=== PATIENT | female | born 1955 | race Caucasian/White ===

== ENCOUNTER 2020-06-26 06:29 | Observation (INO) ==
[2020-06-26] MEDS ORDERED: Isovue-370 500 ML BOTTLE IVP ONE (06:49)
[2020-06-26 07:09] LABS: Basophils % 0.4 %; Eosinophils # 0.1 K/mcL (0.0-0.6); Eosinophils % 1.1 %; Hematocrit 43.9 % (35.3-44.9); Hemoglobin 14.7 g/dL (11.5-15.4); Immature Granulocytes % 0.4 % (0-4); Lymphocytes # 1.2 K/mcL (0.6-4.6); Lymphocytes % 12.6 %; Mean Corpuscular HGB Conc 33.5 g/dL (31.6-35.5); Mean Corpuscular Hemoglobin 32.7 pg (28.0-33.3); Mean Corpuscular Volume 97.8 fL (83.0-100.0); Mean Platelet Volume 10.8 fL (9.4-12.4); Monocytes # 0.6 K/mcL (0.0-1.3); Monocytes % 6.2 %; Neutrophils # 7.3 K/mcL (1.6-8.9); Platelet Count 215 K/mcL (140-400); Red Blood Count 4.49 M/mcL (3.82-4.97); Red Cell Distribution Width 13.8 % (11.5-14.5); Segmented Neutrophils % 79.3 %; White Blood Count 9.2 K/mcL (4.3-11.1)
[2020-06-26 07:28] LABS: Prothrombin Time 11.7 Seconds (9.4-12.1)
[2020-06-26 07:30] LABS: Activated Partial Thrombo Time 32.6 Seconds (26.0-36.0)
[2020-06-26 07:36] LABS: Albumin/Globulin Ratio 1.4 (1.1-2.2); Bilirubin,Total 0.5 mg/dL (0.3-1.0); Calcium 9.4 mg/dL (8.6-10.3); Globulin 2.8 g/dL (2.4-3.5); Potassium 4.4 mEq/L (3.5-5.1); Total Protein 6.8 g/dL (6.4-8.9)
[2020-06-26] MEDS ORDERED: 0.9 % Sodium Chloride 1,000 ML IVC ONE (09:13)
[2020-06-26] MEDS ORDERED: Ondansetron 4 MG/2 ML VIAL IVP ONE (09:13)
[2020-06-26] MEDS ORDERED: Famotidine 20 MG/2 ML VIAL IVP ONE (09:14)
[2020-06-26] MEDS ORDERED: Melatonin 3 MG TABLET PO PRN (10:22)
[2020-06-26] MEDS ORDERED: Acetaminophen 325 MG TABLET PO PRN (10:22)
[2020-06-26] MEDS ORDERED: Ondansetron 4 MG/2 ML VIAL IVP PRN (10:22)
[2020-06-26] MEDS ORDERED: MOM Conc 10 ML UD.LIQ PO PRN (10:22)
[2020-06-26] MEDS ORDERED: Naloxone 0.4 MG/ML INJ IVP PRN (10:22)
[2020-06-26] MEDS ORDERED: TRAMADOL HCL 50 MG PO PRN (10:29)
[2020-06-26] MEDS: *HR* OxyCODONE/APAP 5/325 TABLET PO PRN ×2 (11:42→22:59)
[2020-06-26] MEDS: 0.9 % Sodium Chloride 1,000 ML IVC SCH ×2 (11:43→23:02)
[2020-06-27 04:27] LABS: Basophils % 0.7 %; Eosinophils # 0.1 K/mcL (0.0-0.6); Eosinophils % 2.2 %; Hematocrit 39.2 % (35.3-44.9); Hemoglobin 12.7 g/dL (11.5-15.4); Immature Granulocytes % 0.2 % (0-4); Lymphocytes # 1.5 K/mcL (0.6-4.6); Mean Corpuscular HGB Conc 32.4 g/dL (31.6-35.5); Mean Corpuscular Hemoglobin 32.5 pg (28.0-33.3); Mean Corpuscular Volume 100.3 fL (83.0-100.0); Mean Platelet Volume 10.9 fL (9.4-12.4); Monocytes # 0.4 K/mcL (0.0-1.3); Monocytes % 7.7 %; Neutrophils # 3.4 K/mcL (1.6-8.9); Platelet Count 157 K/mcL (140-400); Red Blood Count 3.91 M/mcL (3.82-4.97); Red Cell Distribution Width 13.9 % (11.5-14.5); Segmented Neutrophils % 62.2 %; White Blood Count 5.4 K/mcL (4.3-11.1)
[2020-06-27 06:28] LABS: Amylase 66 Units/L (29-103); Lipase 257 Units/L (11-82)
[2020-06-27 06:29] LABS: Albumin 3.4 g/dL (3.5-5.7); Albumin/Globulin Ratio 1.5 (1.1-2.2); Bilirubin,Total 0.5 mg/dL (0.3-1.0); Calcium 8.5 mg/dL (8.6-10.3); Globulin 2.3 g/dL (2.4-3.5); Total Protein 5.7 g/dL (6.4-8.9)
[2020-06-27] MEDS ORDERED: amLODIPine 5 MG TABLET PO SCH (09:00)
[2020-06-27] MEDS ORDERED: Fluticasone Propionate Nasal 50 MCG/SPRAY BOTTLE NS SCH (09:00)
[2020-06-27] MEDS ORDERED: lisinopriL 20 MG TABLET PO SCH (09:00)
[2020-06-27] MEDS ORDERED: Loratadine 10 MG TABLET PO SCH (09:00)
[2020-06-27] MEDS ORDERED: Famotidine 20 MG TABLET PO SCH (09:00)
[2020-06-27] MEDS ORDERED: Cholecalciferol (D-3) 1,000 UNIT (25MCG) TABLET PO SCH (09:00)
[2020-06-27 10:51] VITALS: BP 162/81
[2020-06-27] MEDS: 0.9 % Sodium Chloride 1,000 ML IVC SCH (12:31)
[2020-06-27 15:16] LABS: Chol/HDL Ratio 3.9 (0-4.9)
[2020-06-28] MEDS ORDERED: Famotidine 20 MG TABLET PO SCH (09:00)
== END 2020-06-27 16:35 | disposition home or self-care (01) ==
LOC: EMEROOPIK 06:29 → INPPIK 06:29
PROVIDERS: ADMIT Family Medicine; ATTEND Family Medicine